=== PATIENT | female | born 1995 | race Caucasian/White ===

== ENCOUNTER 2018-01-21 16:02 | Emergency (ER) | payer OTHER ==
[~2018-01-21] VITALS: Ht 165.1 cm; Wt 105.7 kg
[2018-01-21 16:08] VITALS: BP 147/101
--- NOTE | 2018-01-21 16:08 | NUR ---
Patient ambulated to bed 12. RN evaluating patient at bedside.
--- NOTE | 2018-01-21 16:29 | NUR ---
22 YEAR OLD FEMALE CAME IN FROM HOME WITH EXCESSIVE VAGINAL BLEEDING; 5 LARGE PADS/HR, WITH BLOOD CLOTS. NO N/V. LOWER ABD PAIN (HX OF APPENDICITIS SURGERY). PT STATES THIS IS THE FIRST TIME THIS HAS HAPPENED. OTHER PERIODS THOUGHTOUT THE YEAR ARE NORMAL. STATES SHE HAD AN TRANSVAGINAL ULTRASOUND LOOKING AT A CYST 01/19/18 AND THE PAIN AND BLOOD STARTED AFTER. LUNG SOUNDS ARE CLEAR BILATERALLY. S1S2 HEARD.
[2018-01-21] MEDS ORDERED: KETOROLAC 30 MG/ML VIAL IM ONE (16:40)
[2018-01-21 17:22] LABS: BASOPHILS % (AUTO) 0.4 % (0.0-2.0); EOSINOPHILS % (AUTO) 0.4 % (0.0-4.0); HEMATOCRIT 39.9 % (36-48); HEMOGLOBIN 13.1 g/dL (12.0-16.0); LYMPHOCYTES # (AUTO) 2.9 K/uL (2.5-16.5); MEAN CORPUSCULAR HEMOGLOBIN 29 pg (27-31); MEAN CORPUSCULAR HGB CONC 33 g/dL (33-37); MEAN CORPUSCULAR VOLUME 89.8 fL (80-94); MONOCYTES # (AUTO) 0.8 K/uL (0.8-1.0); MONOCYTES % (AUTO) 7.5 % (1.7-9.3); NEUTROPHILS # (AUTO) 6.6 K/uL (1.8-7.7); NEUTROPHILS % (AUTO) 63.7 % (42.2-75.2); PLATELET COUNT (AUTO) 347 K/uL (140-450); RED BLOOD CELL COUNT(AUTO) 4.44 MIL/uL (4.20-5.40); RED CELL DISTRIBUTION WIDTH 14.2 % (11.6-13.7); WHITE BLOOD COUNT (AUTO) 10.4 K/uL (4.5-11.0)
[2018-01-21 18:07] LABS: FREE T4 (FREE THYROXINE) 1.08 ng/dL (0.76-1.46); THYROID STIMULATING HORMONE 0.84 uIU/mL (0.34-3.74)
[2018-01-21] MEDS ORDERED: NACL 0.9% 1,000 ML IV ONE (19:05)
--- NOTE | 2018-01-21 19:17 | NUR ---
REPORT RECEIVED FROM FORTINO CASTELLANO
--- NOTE | 2018-01-21 19:17 | NUR ---
gave report to Delmy FREITAS, for continuation of care
--- NOTE | 2018-01-21 19:30 | NUR ---
CONSENT SIGNED FOR CT.
[2018-01-21 20:18] LABS: ANION GAP 12.3 (8-16); CARBON DIOXIDE 26.3 mmol/L (21-32); CREATININE 0.8 mg/dL (0.6-1.3); POTASSIUM 3.6 mmol/L (3.5-5.1)
--- NOTE | 2018-01-21 20:32 | NUR ---
LAB RESULTS COMPLETED, PT OK FOR CT NOW. CALLED CT FOR PICK-UP
--- NOTE | 2018-01-21 20:40 | NUR ---
PT TO CT VIA [facility]CETTA IN STABLE CONDITION
--- NOTE | 2018-01-21 20:49 | NUR ---
PT RETURN FROM CT
--- NOTE | 2018-01-21 22:22 | NUR ---
Patient discharged with v/s stable. Written and verbal after care instructions given and explained. Patient alert, oriented and verbalized understanding of instructions. Ambulatory with steady gait. All questions addressed prior to discharge. ID band removed. Patient advised to follow up with PMD. Rx of MOTRIN, PROVERA AND NORCO given. Patient educated on indication of medication including possible reaction and side effects. Opportunity to ask questions provided and answered.
[2018-01-21 22:23] VITALS: BP 137/67
== END 2018-01-21 22:22 | disposition home or self-care (01) ==
LOC: MED 16:02
DX: N93.8 Other specified abnormal uterine and vaginal bleeding (principal); Z90.89 Acquired absence of other organs
CPT/HCPCS: 36415; 74177; 76830; 80048; 81002; 81025; 84439; 84443; 85025; 96361; 96374; 99285; J1885; Q0092; Q9967; J7030

== ENCOUNTER 2018-11-22 01:08 | Emergency (ER) | payer OTHER ==
[~2018-11-22] VITALS: Ht 165.1 cm; Wt 99.8 kg
[2018-11-22 01:15] VITALS: BP 117/64
--- NOTE | 2018-11-22 01:18 | NUR ---
TO LOBBY A/W BED AMBULATORY
--- NOTE | 2018-11-22 01:39 | NUR ---
PT TAKEN TO BED 8
--- NOTE | 2018-11-22 01:39 | NUR ---
Dr. Lucas evaluating patient at bedside.
--- NOTE | 2018-11-22 01:40 | NUR ---
23/F PRESENTS TO ED, C/O 9/10 CONSTANT SHARP, BURNING DIFFUSE ABD PAIN, SINCE LAST NIGHT. PT REPORTS N/V X4 EPISODES. REPORTS DIARRHEA X1 DAY. AOX4, GCS 15, SKIN NORMAL WARM DRY, RR EVEN AND UNLABORED. LUNG SOUNDS CLEAR BL. BS ACTIVE X4, ABD SOFT ROUND TENDER TO TOUCH DIFFUSELY. HX APPENDECTOMY; DENIES RX; OTC MOTRIN AND PEPTO-BISMOL WITH IMPROVEMENT.
[2018-11-22] MEDS ORDERED: NACL 0.9% 1,000 ML IV ONE (01:42)
[2018-11-22] MEDS ORDERED: ONDANSETRON 4 MG/2 ML VIAL IVP ONE (01:45)
[2018-11-22] MEDS ORDERED: MORPHINE SULFATE 4 MG/ML SYR IVP ONE (01:45)
[2018-11-22 01:55] LABS: BASOPHILS % (AUTO) 0.2 % (0.0-2.0); EOSINOPHILS # (AUTO) 0.1 K/uL (0-0.4); EOSINOPHILS % (AUTO) 0.7 % (0.0-4.0); HEMOGLOBIN 14.4 g/dL (12.0-16.0); LYMPHOCYTES # (AUTO) 1.8 K/uL (2.5-16.5); LYMPHOCYTES % (AUTO) 18.9 % (20.5-51.1); MEAN CORPUSCULAR HEMOGLOBIN 30 pg (27-31); MEAN CORPUSCULAR HGB CONC 34 g/dL (33-37); MEAN CORPUSCULAR VOLUME 90.6 fL (80-94); MONOCYTES % (AUTO) 10.4 % (1.7-9.3); NEUTROPHILS # (AUTO) 6.7 K/uL (1.8-7.7); NEUTROPHILS % (AUTO) 69.8 % (42.2-75.2); PLATELET COUNT (AUTO) 324 K/uL (140-450); RED BLOOD CELL COUNT(AUTO) 4.75 MIL/uL (4.20-5.40); RED CELL DISTRIBUTION WIDTH 13.9 % (11.6-13.7); WHITE BLOOD COUNT (AUTO) 9.5 K/uL (4.8-10.8)
[2018-11-22 02:06] LABS: ANION GAP 10.6 (8-16); CARBON DIOXIDE 26.5 mmol/L (21-32); CREATININE 0.8 mg/dL (0.6-1.3); POTASSIUM 4.1 mmol/L (3.5-5.1)
[2018-11-22 02:12] LABS: ALBUMIN 3.5 g/dL (3.4-5.0); TOTAL BILIRUBIN 0.1 mg/dL (0.0-1.0)
--- NOTE | 2018-11-22 02:53 | NUR ---
PT TAKEN TO CT
[2018-11-22 02:59] LABS: APPEARANCE,URINE SL CLOUDY (CLEAR); BILIRUBIN,URINE NEGATIVE (NEGATIVE); BLOOD, URINE NEGATIVE (NEGATIVE); COLOR,URINE YELLOW (YELLOW); LEUKOCYTE ESTERASE ,URINE NEGATIVE (NEGATIVE); NITRITE, URINE NEGATIVE (NEGATIVE); UGLUCOSE NEGATIVE (NEGATIVE)
--- NOTE | 2018-11-22 04:20 | NUR ---
PT LAYING IN BED, MOTHER AT BEDSIDE. VSS, RR EVEN AND UNLABORED. PT REPORTS RELIEF FROM MORPHINE IVP, THAT PAIN HAS CAME BACK 03/01 AT THIS TIME. REPORTS VOMITING X1 AND DIARRHEA X2 SINCE COMING TO ER. DR HENDRICKSON MADE AWARE. VERBAL ORDER FOR BENTYL 20MG IM STAT AND TORADOL 30MG IVP STAT, WILL CARRY OUT.
[2018-11-22] MEDS ORDERED: DICYCLOMINE 20 MG/2 ML VIAL IM ONE (04:40)
[2018-11-22] MEDS ORDERED: KETOROLAC 30 MG/ML VIAL IVP ONE (04:40)
--- NOTE | 2018-11-22 05:03 | NUR ---
Patient discharged with v/s stable. Written and verbal after care instructions given and explained. Patient alert, oriented and verbalized understanding of instructions. Ambulatory with steady gait. All questions addressed prior to discharge. ID band removed. Patient advised to follow up with PMD. Rx of LOY WEBBER ODT given. Patient educated on indication of medication including possible reaction and side effects. Opportunity to ask questions provided and answered.
[2018-11-22 05:05] VITALS: BP 125/77
== END 2018-11-22 05:03 | disposition home or self-care (01) ==
LOC: MED 01:08
DX: R10.84 Generalized abdominal pain (principal); R11.10 Vomiting, unspecified; R19.7 Diarrhea, unspecified
CPT/HCPCS: 36415; 74176; 80053; 81003; 81025; 83690; 85025; 96361; 96372; 96374; 96375; 99284; J0500; J1885; J2270; J2405; J7030

== ENCOUNTER 2019-10-14 12:34 | Day surgery (SDC) | payer SELFPAY ==
[~2019-10-14] VITALS: Ht 167.6 cm; Wt 106.1 kg
[2019-10-14 12:38] VITALS: BP 134/86
[2019-10-14] MEDS ORDERED: KETOROLAC 30 MG/ML VIAL IM ONE (12:55)
[2019-10-14 13:34] LABS: BASOPHILS % (AUTO) 0.4 % (0.0-2.0); EOSINOPHILS % (AUTO) 0.3 % (0.0-4.0); HEMATOCRIT 38.2 % (36-48); HEMOGLOBIN 12.4 g/dL (12.0-16.0); LYMPHOCYTES # (AUTO) 2.3 K/uL (2.5-16.5); LYMPHOCYTES % (AUTO) 32.2 % (20.5-51.1); MEAN CORPUSCULAR HEMOGLOBIN 30 pg (27-31); MEAN CORPUSCULAR HGB CONC 33 g/dL (33-37); MEAN CORPUSCULAR VOLUME 93.2 fL (80-94); MONOCYTES # (AUTO) 0.4 K/uL (0.8-1.0); MONOCYTES % (AUTO) 6.2 % (1.7-9.3); NEUTROPHILS # (AUTO) 4.3 K/uL (1.8-7.7); NEUTROPHILS % (AUTO) 60.9 % (42.2-75.2); PLATELET COUNT (AUTO) 341 K/uL (140-450); RED CELL DISTRIBUTION WIDTH 14.1 % (11.6-13.7); WHITE BLOOD COUNT (AUTO) 7.1 K/uL (4.8-10.8)
[2019-10-14 13:43] LABS: APPEARANCE,URINE SL CLOUDY (CLEAR); BILIRUBIN,URINE NEGATIVE (NEGATIVE); BLOOD, URINE 3+ (NEGATIVE); COLOR,URINE YELLOW (YELLOW); LEUKOCYTE ESTERASE ,URINE NEGATIVE (NEGATIVE); NITRITE, URINE NEGATIVE (NEGATIVE); PH,URINE 7.5 (5.0-9.0); UGLUCOSE NEGATIVE (NEGATIVE)
[2019-10-14 14:05] LABS: ANION GAP 9.5 (8-16); CARBON DIOXIDE 30.6 mmol/L (21-32); CREATININE 0.8 mg/dL (0.6-1.3); POTASSIUM 4.1 mmol/L (3.5-5.1)
[2019-10-14 14:14] LABS: ALBUMIN 3.4 g/dL (3.4-5.0); TOTAL BILIRUBIN 0.3 mg/dL (0.0-1.0)
[2019-10-14 14:35] LABS: RBC,URINE 20-50 /HPF (0-5)
[2019-10-14] MEDS ORDERED: MORPHINE SULFATE 4 MG/ML SYR IVP ONE (15:35)
[2019-10-14] MEDS ORDERED: diphenhydrAMINE 50 MG/ML VIAL IVP PRN (18:25)
[2019-10-14] MEDS ORDERED: ONDANSETRON 4 MG/2 ML VIAL IVP PRN (18:25)
[2019-10-14] MEDS ORDERED: MEPERIDINE 25 MG/ML SYR IVP PRN (18:25)
[2019-10-14] MEDS ORDERED: LACTATED RINGERS 1,000 ML IV SCH (18:25)
[2019-10-14] MEDS ORDERED: HYDROmorphone 1 MG/ML AMP IVP PRN (18:25)
[2019-10-14] MEDS ORDERED: NEOSTIGMINE 1:1000 10 MG/10 ML VIAL ONE (18:30)
[2019-10-14] MEDS ORDERED: SUCCINYLCHOLINE CHLORIDE 200 MG/10 ML VIAL IVP ONE (18:30)
[2019-10-14] MEDS ORDERED: MIDAZOLAM 2 MG/2 ML VIAL ONE (18:30)
[2019-10-14] MEDS ORDERED: KETOROLAC 30 MG/ML VIAL ONE (18:30)
[2019-10-14] MEDS ORDERED: SEVOFLURANE 250 ML BTL INH ONE (18:30)
[2019-10-14] MEDS ORDERED: ONDANSETRON 4 MG/2 ML VIAL ONE (18:30)
[2019-10-14] MEDS ORDERED: DEXAMETHASONE 4 MG/ML VIAL ONE (18:30)
[2019-10-14] MEDS ORDERED: PROPOFOL 200 MG/20 ML VIAL IV ONE (18:30)
[2019-10-14] MEDS ORDERED: GLYCOPYRROLATE 0.2 MG/ML VIAL ONE (18:30)
[2019-10-14] MEDS ORDERED: fentaNYL 0.05 MG/ML VIAL ONE (18:30)
[2019-10-14] MEDS ORDERED: MEPERIDINE 25 MG/ML SYR ONE (18:30)
[2019-10-14] MEDS ORDERED: ROCURONIUM 50 MG/5 ML VIAL IV ONE (18:30)
[2019-10-14] MEDS ORDERED: BUPIVACAINE-MPF/EPI 0.25% 10 ML VIAL INJ ONE (18:39)
[2019-10-14] MEDS: HYDROmorphone PFS 2 MG/ML SYR ONE ×4 (20:20→20:50)
[2019-10-14] MEDS ORDERED: IBUPROFEN 800 MG TAB PO ONE (20:30)
[2019-10-14] MEDS ORDERED: KETOROLAC 30 MG/ML VIAL IVP ONE (20:30)
[2019-10-14] MEDS ORDERED: oxyCODONE/APAP 5/325 MG 1 TAB TAB PO ONE (20:30)
[2019-10-14 23:17] VITALS: BP 121/69
== END 2019-10-15 01:00 | disposition home or self-care (01) ==
LOC: MED 12:34 → MTU 17:32 → MDS 17:32
PROVIDERS: ATTEND Obstetrics & Gynecology
DX: O00.101 Right tubal pregnancy without intrauterine pregnancy (principal); E66.9 Obesity, unspecified; Z68.38 Body mass index [BMI] 38.0-38.9, adult; Z79.899 Other long term (current) drug therapy; Z90.49 Acquired absence of other specified parts of digestive tract
CPT/HCPCS: 36415; 59151; 76801; 76817; 80053; 81001; 84702; 85025; 86886; 86900; 86901; 87086; 88305; 96372; 96374; 99285; J0330; J1100; J1170; J1885; J2175; J2250; J2270; J2405; J2704; J2710; J3010; J3490; Q0092

== ENCOUNTER 2019-10-24 16:40 | Emergency (ER) | payer OTHER ==
[~2019-10-24] VITALS: Ht 165.1 cm; Wt 106.1 kg
[2019-10-24 16:49] VITALS: BP 124/77
--- NOTE | 2019-10-24 17:00 | NUR ---
PT AMBULATE TO BED WITH STEADY GAIT.
--- NOTE | 2019-10-24 17:09 | NUR ---
C/O VAGINAL BLEEDING , LOWER ABDOMINAL PAIN X TODAY. PT AWAKE,ALERT , AFIBRILE , AMBULATORY WITH STEADY GAIT. SCE , CBS BLF , ROUND SOFT NABS NONTENDER ABDOMEN. MED HX: APPENDECTOMY, ECTOPIC & LAPAROSCOPY 10/17/19
--- NOTE | 2019-10-24 17:11 | NUR ---
DR ESPINOZA AT BEDSIDE EVALUATING PT.
--- NOTE | 2019-10-24 17:11 | NUR ---
Aris london in [facility] - 10/24/19 at 1712 by MED1 Patient being evaluated by dr taylor at bedside.
[2019-10-24 17:20] LABS: BILIRUBIN,URINE NEGATIVE (NEGATIVE); BLOOD, URINE 3+ (NEGATIVE); LEUKOCYTE ESTERASE ,URINE TRACE (NEGATIVE); NITRITE, URINE NEGATIVE (NEGATIVE); PH,URINE 6.5 (5.0-9.0); UGLUCOSE NEGATIVE (NEGATIVE)
[2019-10-24 17:22] LABS: APPEARANCE,URINE HAZY (CLEAR); COLOR,URINE BLOODY (YELLOW)
[2019-10-24 17:30] LABS: BASOPHILS # (AUTO) 0.1 K/uL (0.00-0.22); BASOPHILS % (AUTO) 0.7 % (0.0-2.0); EOSINOPHILS # (AUTO) 0.1 K/uL (0-0.4); EOSINOPHILS % (AUTO) 0.7 % (0.0-4.0); HEMOGLOBIN 13.5 g/dL (12.0-16.0); LYMPHOCYTES # (AUTO) 2.6 K/uL (2.5-16.5); LYMPHOCYTES % (AUTO) 26.7 % (20.5-51.1); MEAN CORPUSCULAR HEMOGLOBIN 31 pg (27-31); MEAN CORPUSCULAR HGB CONC 33 g/dL (33-37); MEAN CORPUSCULAR VOLUME 93.5 fL (80-94); MONOCYTES # (AUTO) 0.6 K/uL (0.8-1.0); MONOCYTES % (AUTO) 6.5 % (1.7-9.3); NEUTROPHILS # (AUTO) 6.4 K/uL (1.8-7.7); NEUTROPHILS % (AUTO) 65.4 % (42.2-75.2); PLATELET COUNT (AUTO) 364 K/uL (140-450); RED BLOOD CELL COUNT(AUTO) 4.39 MIL/uL (4.20-5.40); RED CELL DISTRIBUTION WIDTH 14.1 % (11.6-13.7); WHITE BLOOD COUNT (AUTO) 9.8 K/uL (4.8-10.8)
[2019-10-24 17:43] LABS: RBC,URINE >100 /HPF (0-5); WBC,URINE 0-5 /HPF (0-5)
--- NOTE | 2019-10-24 17:43 | NUR ---
US AT BEDSIDE.
[2019-10-24] MEDS: ONDANSETRON 4 MG ODT PO ONE (17:57)
[2019-10-24 18:00] LABS: ALBUMIN 3.4 g/dL (3.4-5.0); ANION GAP 10.9 (8-16); CARBON DIOXIDE 29.3 mmol/L (21-32); POTASSIUM 4.2 mmol/L (3.5-5.1); TOTAL BILIRUBIN 0.1 mg/dL (0.0-1.0)
[2019-10-24 18:42] VITALS: BP 114/73
--- NOTE | 2019-10-24 18:43 | NUR ---
pt comfortable in bed ,vs stable,side rails up x1 and lock.
--- NOTE | 2019-10-24 18:56 | NUR ---
dr taylor reevaluating pt at bedside.
--- NOTE | 2019-10-24 19:12 | NUR ---
gave report to lilibeth pearce . pt withstable vs.
--- NOTE | 2019-10-24 19:12 | NUR ---
RECEIVED REPORT FROM FORTINO EAGLE. ASSUMED CARE AT THIS TIME. PT IN NO DISTRESS AT THIS TIME, CURRENTLY ON CELL PHONE. WILL CONTINUE TO MONITOR.
--- NOTE | 2019-10-24 19:22 | NUR ---
Patient discharged with v/s stable. Written and verbal after care instructions given and explained. Patient verbalized understanding. Ambulatory with steady gait. All questions addressed prior to discharge. Advised to follow up with PMD.
== END 2019-10-24 19:22 | disposition home or self-care (01) ==
LOC: MED 16:40
DX: N89.8 Other specified noninflammatory disorders of vagina (principal); R10.9 Unspecified abdominal pain; R11.0 Nausea; Z90.49 Acquired absence of other specified parts of digestive tract
CPT/HCPCS: 36415; 76856; 80053; 81001; 81025; 84702; 85025; 93976; 99284; Q0092; Q0162

== ENCOUNTER 2020-05-20 18:04 | Emergency (ER) | payer OTHER ==
[~2020-05-20] VITALS: Ht 165.1 cm; Wt 99.8 kg
[2020-05-20 18:09] VITALS: BP 156/94
--- NOTE | 2020-05-20 18:28 | NUR ---
C/O OF VAGINAL BLEEDING AND LOWER ABDOMINAL PAIN, 03/01, THAT IS CONSTANT AND SHARP X2 DAYS. STATES SHE TOOK TYLENOL AND MIDOL WITH NO RELIEF. STATES THE PAIN IS RADIATING TO HER LOWER BACK AND SHE HAS THE URGE TO PUSH. ADMITS TO PERIODS OF DIZZINESS AND NAUSEA. DENIES N/V/D AT THIS TIME. STATES IS A POSSIBILITY, TOOK A BLOOD TEST BUT HAS YET TO RECEIVE THE RESULTS. PATIENT PLACED IN GOWN, BED IN LOWEST POSITION, RAIL UP X1.
[2020-05-20] MEDS ORDERED: NACL 0.9% 1,000 ML IV ONE (18:55)
[2020-05-20] MEDS ORDERED: ONDANSETRON 4 MG/2 ML VIAL IVP ONE (18:55)
[2020-05-20] MEDS ORDERED: ACETAMINOPHEN 325 MG TAB PO ONE (18:55)
--- NOTE | 2020-05-20 19:13 | NUR ---
Ultrasound at bedside
--- NOTE | 2020-05-20 19:19 | NUR ---
REPORT RECEIVED FROM LUIS FREITAS
[2020-05-20 19:25] LABS: BASOPHILS % (AUTO) 0.4 % (0.0-2.0); EOSINOPHILS # (AUTO) 0.1 K/uL (0-0.4); EOSINOPHILS % (AUTO) 0.7 % (0.0-4.0); HEMATOCRIT 39.8 % (36-48); HEMOGLOBIN 13.2 g/dL (12.0-16.0); LYMPHOCYTES # (AUTO) 2.9 K/uL (2.5-16.5); LYMPHOCYTES % (AUTO) 27.3 % (20.5-51.1); MEAN CORPUSCULAR HEMOGLOBIN 30 pg (27-31); MEAN CORPUSCULAR HGB CONC 33 g/dL (33-37); MEAN CORPUSCULAR VOLUME 89.4 fL (80-94); MONOCYTES # (AUTO) 0.9 K/uL (0.8-1.0); MONOCYTES % (AUTO) 8.2 % (1.7-9.3); NEUTROPHILS # (AUTO) 6.8 K/uL (1.8-7.7); NEUTROPHILS % (AUTO) 63.4 % (42.2-75.2); PLATELET COUNT (AUTO) 374 K/uL (140-450); RED BLOOD CELL COUNT(AUTO) 4.45 MIL/uL (4.20-5.40); RED CELL DISTRIBUTION WIDTH 14.2 % (11.6-13.7); WHITE BLOOD COUNT (AUTO) 10.7 K/uL (4.8-10.8)
--- NOTE | 2020-05-20 20:10 | NUR ---
PT STATES PAIN IS BETTER
[2020-05-20 20:11] LABS: APPEARANCE,URINE BLOODY (CLEAR); BILIRUBIN,URINE NEGATIVE (NEGATIVE); BLOOD, URINE 3+ (NEGATIVE); COLOR,URINE RED (YELLOW); LEUKOCYTE ESTERASE ,URINE 1+ (NEGATIVE); NITRITE, URINE NEGATIVE (NEGATIVE); PH,URINE 6.5 (5.0-9.0); UGLUCOSE NEGATIVE (NEGATIVE)
[2020-05-20 20:17] LABS: RBC,URINE >100 /HPF (0-5); WBC,URINE 20-60 /HPF (0-5)
[2020-05-20 20:20] LABS: ALBUMIN 3.8 g/dL (3.4-5.0); ANION GAP 12.9 (8-16); CREATININE 0.8 mg/dL (0.6-1.3); POTASSIUM 3.9 mmol/L (3.5-5.1); TOTAL BILIRUBIN 0.2 mg/dL (0.0-1.0)
[2020-05-20 20:44] VITALS: BP 134/82
== END 2020-05-20 20:45 | disposition home or self-care (01) ==
LOC: MED 18:04
DX: N94.6 Dysmenorrhea, unspecified (principal); E66.9 Obesity, unspecified; Z68.36 Body mass index [BMI] 36.0-36.9, adult
CPT/HCPCS: 36415; 76830; 80053; 81001; 81025; 84702; 85025; 87086; 96361; 96374; 99284; J2405; J7030